=== PATIENT | female | born 1975 | race Hispanic/Latino ===

== ENCOUNTER 2018-01-19 13:40 | Emergency (ER) | payer SELFPAY ==
[2018-01-19] MEDS ORDERED: HYDROcodone/Acetaminophen 10/325 mg Tablet ONE (14:32)
--- NOTE | 2018-01-19 15:04 | RAD ---
RADIOGRAPH RIGHT LEG TIBIA AND FIBULA TWO VIEWS: Date: 01-19-18 Time: 1:36 p.m. History: 42-year-old female status post right leg injury two weeks ago. Persistent pain. FINDINGS: There is no fracture or any other major osseous abnormality involving the tibia or fibula. IMPRESSION: Negative. POS: [facility]
--- NOTE | 2018-01-19 15:05 | RAD ---
RIGHT FOOT 3 VIEWS: HISTORY: Injury. COMPARISON: None. FINDINGS: There is a fracture of the 5th metatarsal proximal tuberosity with distraction approximately 3 mm. T he fracture does appear to extend into the intermetatarsal joint in the 4th and 5th metatarsal bases. The fracture does extend to the 5th tarsometatarsal joint. Lisfranc alignment appears to be normal. IMPRESSION: Fracture of the 5th proximal metatarsal tuberosity with intraarticular extension. Fracture fragment is distracted proximally 3 mm. POS: [facility]
== END 2018-01-19 15:36 | disposition home or self-care (01) ==
LOC: ERS 13:40
DX: S92.351A Displaced fracture of fifth metatarsal bone, right foot, initial encounter for closed fracture (principal); W10.9XXA Fall (on) (from) unspecified stairs and steps, initial encounter

== ENCOUNTER 2020-08-20 08:42 | Day surgery (SDC) | payer SELFPAY ==
[2020-08-20 09:10] LABS: #Basophils 0.1 thou/uL (0.0-0.2); #Eosinphils 0.2 thou/uL (0.0-0.7); #Monocytes 0.5 thou/uL (0.11-0.59); #Neutrophils 6.5 thou/uL (1.40-6.50); %Basophils 0.8 % (0.0-1.0); %Lymphocytes 29.4 % (21.0-51.0); %Monocytes 4.6 % (0.0-10.0); %Neutrophils 63.2 % (42.0-75.0); Hemoglobin 13.9 g/dL (12.0-16.0); Mean Corpuscular HGB CONC 34.8 g/dL (32.0-36.0); Mean Corpuscular Volume 94.9 fL (78.0-98.0); Mean Platelet Volume 9.2 fL (7.4-10.4); Platelet Count 267 thou/uL (130-400); RBC Distribution Width 11.5 % (11.5-14.5); Red Blood Cell (RBC) Count 4.22 mill/uL (4.20-5.40); White Blood Cell (WBC) Count 10.3 thou/uL (4.8-10.8)
[2020-08-20] MEDS ORDERED: Morphine 4 MG/ML VIAL ONE (09:30)
[2020-08-20] MEDS ORDERED: Ondansetron PF 4 MG/2 ML Vial ONE ×2 (09:30→14:51)
[2020-08-20 09:35] LABS: Bacteria/HPF None Seen HPF (None Seen); Bilirubin Negative (Negative); Blood, Urine Trace (Negative); Clarity Clear (Clear); Glucose, Urine (Dipstick) Normal (Negative); Ketone, Urine Negative (Negative); Leukocyte 25 Leu/uL (Negative); Nitrite Negative (Negative); Protein, Urine (Dipstick) Negative (Neg-Trace); RBC/HPF 0-3 HPF (0-3); Specific Gravity, Urine 1.026 (1.002-1.036); Squamous Epithelial 0-3 HPF (0-3); Urobilinogen Normal mg/dL (Less than 2)
[2020-08-20 09:36] LABS: Pregnancy Test - Urine (BHCG) Negative (Negative); Pregu Control Background? CLEAR/WHITE (CLR/WHITE); Pregu Control Bar Appear? YES (CONTROL BAR); Specific Gravity 1.026 (1.002-1.036)
[2020-08-20 09:37] LABS: ALT (SGPT) 16 U/L (8-55); AST (SGOT) 16 U/L (5-34); Albumin 4.1 g/dL (3.5-5.0); Alkaline Phosphatase 87 U/L (40-110); Anion Gap 14 mmol/L (10-20); BUN (Urea Nitrogen) 17 mg/dL (7.0-18.7); Bilirubin, Total 0.5 mg/dL (0.2-1.2); Calc. Creatinine Clearance 0 mL/min (70-130); Carbon Dioxide 21 mmol/L (22-29); Chloride 104 mmol/L (98-107); Glucose 98 mg/dL (70-105); Lipase 27 U/L (8-78); Potassium 4.3 mmol/L (3.5-5.1); Protein, Total 7.1 g/dL (6.0-8.3); Sodium 135 mmol/L (136-145)
[2020-08-20 13:08] LABS: SARS-CoV-2 NAA Rapid Test Not Detected (NotDetected)
[2020-08-20] MEDS ORDERED: Bupivacaine 0.25% HCL 30 ML VIAL ONE (14:30)
[2020-08-20] MEDS ORDERED: XYLOCAINE 2%-EPI 1:100,000 20 ML VIAL ONE (14:30)
[2020-08-20] MEDS ORDERED: Fentanyl 100 MCG/2 ML VIAL ONE ×3 (14:31→16:51)
[2020-08-20] MEDS ORDERED: Rocuronium Bromide 10 MG/ML (10ML VIAL) ONE (14:51)
[2020-08-20] MEDS ORDERED: Esmolol 100 MG/10 ML VIAL ONE (14:51)
[2020-08-20] MEDS ORDERED: PROPOFOL 200 MG/20 ML VIAL ONE (14:51)
[2020-08-20] MEDS ORDERED: Glycopyrrolate 0.2 MG/ML 5 ML SYRINGE ONE (14:51)
[2020-08-20] MEDS ORDERED: Dexamethasone 20 MG/5 ML VIAL ONE (14:51)
[2020-08-20] MEDS ORDERED: Lidocaine 1% PF 5 ML VIAL ONE (14:51)
[2020-08-20] MEDS ORDERED: Succinylcholine 200 MG/10 ml SYRINGE FS ONE (14:51)
[2020-08-20] MEDS ORDERED: Ketorolac Tromethamine 30 MG/ML VIAL ONE (16:27)
[2020-08-20] MEDS ORDERED: HYDROcodone/Acetaminophen 5/325 mg Tablet ONE (16:58)
== END 2020-08-20 18:14 | disposition home or self-care (01) ==
LOC: ERS 08:42 → SDC 13:40
PROVIDERS: ATTEND Surgery
PROC: 0FT44ZZ Resection of Gallbladder, Percutaneous Endoscopic Approach (ICD-10-PCS; principal; 2020-08-20)
DX: K80.12 Calculus of gallbladder with acute and chronic cholecystitis without obstruction (principal); E66.01 Morbid (severe) obesity due to excess calories; Z68.31 Body mass index [BMI] 31.0-31.9, adult; Z20.822 Contact with and (suspected) exposure to COVID-19
CPT/HCPCS: 76705; 80053; 81003; 81015; 81025; 83690; 85025; 88304; 93005; 96374; 96375; J1100; J1885; J2270; J2405; J2704; J3010; S0020; U0002

== ENCOUNTER 2021-05-14 10:03 | Emergency (ER) | payer OTHER, SELFPAY ==
[2021-05-14] MEDS ORDERED: Ibuprofen 200 MG TAB ONE (11:20)
[2021-05-14] MEDS ORDERED: Acetaminophen 325 MG TAB ONE (11:20)
[2021-05-14] MEDS ORDERED: Benzonatate 100 MG CAP ONE (11:44)
[2021-05-14] MEDS ORDERED: guaiFENesin/Codeine 200 mg/20 mg 10 ml Cup PO SCH (12:00)
[2021-05-15 08:08] LABS: SARS-CoV-2 PCR by NAA Not Detected (NotDetected)
== END 2021-05-14 13:30 | disposition home or self-care (01) ==
LOC: ERS 10:03
DX: B34.9 Viral infection, unspecified (principal); Z20.822 Contact with and (suspected) exposure to COVID-19
CPT/HCPCS: 87804; 99283; U0003; U0005